=== PATIENT | male | born 1970 | race Caucasian/White ===

== ENCOUNTER 2018-11-16 03:14 | Emergency (ER) | payer OTHER ==
--- NOTE | 2018-11-16 03:57 | EDM.PDOC ---
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: Acetaminophen right lower tooth Pain Score (Numeric/FACES): 6 - Related Data Allergies Allergy/AdvReac Type Severity Reaction Status Date / Time Penicillins Allergy Rash Verified 11/16/18 03:39 Home Meds: Home Meds NK [No Known Home Meds] 11/16/18 [History] Past Medical History Musculoskeletal History: Reports: Fracture - Past Surgical History HEENT Surgical History: Reports: Tonsillectomy Musculoskeletal Surgical History: Reports: Other (See Below) Social & Family History - Tobacco Use Smoking Status *Q: Current Every Day Smoker Years of Tobacco use: 30 Packs/Tins Daily: 1 Second Hand Smoke Exposure: Yes - Caffeine Use Caffeine Use: Reports: None - Recreational Drug Use Recreational Drug Use: No Recreational Drug Type: Reports: Marijuana/Hashish ED ROS ENT - Review of Systems Review Of Systems: See Below Constitutional: Denies: Fever, Chills HEENT: Reports: Dental Pain Respiratory: Reports: No Symptoms Cardiovascular: Reports: No Symptoms ED EXAM, ENT - Physical Exam Exam: See Below Text/Narrative:: Mouth is moist and pink he does have caries over tooth #30 there is some edema and tenderness around that tooth, no erythema or exudate noted in soft palate tongue is midline uvula is midline Exam Limited By: No Limitations General Appearance: Alert, WD/WN, No Apparent Distress Head: Atraumatic, Normocephalic Neck: Normal Inspection, Supple, Non-Tender, Full Range of Motion Respiratory/Chest: No Respiratory Distress, Lungs Clear, Normal Breath Sounds, No Accessory Muscle Use Cardiovascular: Regular Rate, Rhythm, No Murmur Course - Vital Signs Last Recorded V/S: Last Vital Signs Temp 96.4 F 11/16/18 03:37 Pulse 94 11/16/18 03:37 Resp 18 11/16/18 03:37 BP 137/92 H 11/16/18 03:37 Pulse Ox 98 11/16/18 03:37 Departure - Departure Time of Disposition: 03:56 Disposition: Home, Self-Care 01 Condition: Fair Clinical Impression: Dental abscess - Discharge Information Referrals: PCP,None [Primary Care Provider] - Additional Instructions: Take full course of antibiotics, use ibuprofen as needed for pain control use hydrocodone for breakthrough pain. Please report to the community dental clinic November 17 at 8:15 in the morning for further evaluation and treatment - Assessment/Plan Plan: Assessment Acuity = acute Site and laterality = dental abscess tooth #30 Etiology = secondary to bacteria and dental caries Manifestations = pain Location of injury = Home Lab values = none Plan Elected treat empirically clindamycin 300 mg every 6 hours 10 days in combination hydrocodone 5/325 one tab by mouth 3 times a day when necessary total #10 he is set up with a community dental clinic Saturday morning at 8:15 This note was dictated using [employer] voice recognition software please call with any questions on syntax or grammar.
== END 2018-11-16 04:04 | disposition home or self-care (01) ==
LOC: JP.ED 03:14
DX: K04.7 Periapical abscess without sinus (principal); F17.210 Nicotine dependence, cigarettes, uncomplicated; Z98.890 Other specified postprocedural states; Z88.0 Allergy status to penicillin
CPT/HCPCS: 99283